=== PATIENT | male | born 1955 ===

== ENCOUNTER 2022-02-02 10:19 | Emergency (ER) | payer BC ==
[2022-02-02 11:32] LABS: CORONAVIRUS COVID-19 NAA NEGATIVE (NEGATIVE); RESPIRATORY SYNCYTIAL VIR NAA POSITIVE (NEGATIVE)
== END 2022-02-02 11:53 | disposition home or self-care (01) ==
LOC: DL.ED 10:19
DX: J21.0 Acute bronchiolitis due to respiratory syncytial virus (principal); Z88.0 Allergy status to penicillin; Z88.5 Allergy status to narcotic agent; Z20.822 Contact with and (suspected) exposure to COVID-19
CPT/HCPCS: 0241U; 99283